=== PATIENT | female | born 1990 | race Two or more races ===

== ENCOUNTER 2017-08-16 16:25 | Inpatient (IN) | payer OTHER ==
[2017-08-16] MEDS ORDERED: OXYTOCIN 30 UNITS/LR 500 ML IV ×2 (18:00)
[2017-08-16] MEDS ORDERED: METHYLERGONOVINE 0.2 MG INJ IM (18:00)
[2017-08-16] MEDS ORDERED: LIDOCAINE 1% (MPF) 30 ML INJ INJ (18:00)
[2017-08-16] MEDS ORDERED: MISOPROSTOL 200 MCG TAB PR (18:00)
[2017-08-16] MEDS ORDERED: CARBOPROST 250 MCG INJ IM (18:00)
[2017-08-16 18:03] LABS: ADD MAN DIFF? NO
[2017-08-16 18:07] LABS: ABNORMAL IP MESSAGE 1; BASOPHIL # 0.1 10^3/ul (0.0-0.1); BASOPHILS % 0.5 % (0.0-2.0); EOSINOPHILS # 0.1 10^3/ul (0.0-0.5); EOSINOPHILS % 0.5 % (0.0-7.0); HEMATOCRIT 42.4 % (37.0-47.0); HEMOGLOBIN 13.9 g/dl (12.0-16.0); LYMPHOCYTES # 1.7 10^3/ul (0.8-2.9); LYMPHOCYTES % 16.6 % (15.0-51.0); MEAN CORPUSCULAR HEMOGLOBIN 26.1 pg (29.0-33.0); MEAN CORPUSCULAR HGB CONC 32.8 g/dl (32.0-37.0); MEAN CORPUSCULAR VOLUME 79.5 fl (82.0-101.0); MEAN PLATELET VOLUME 12.4 fl (7.4-10.4); MONOCYTE # 0.9 10^3/ul (0.3-0.9); NEUTROPHIL # 7.1 10^3/ul (1.6-7.5); NEUTROPHILS % 69.8 % (39.0-77.0); PLATELET COUNT 175 10^3/UL (140-415); RED BLOOD COUNT 5.33 10^6/ul (4.20-5.40); RED CELL DISTRIBUTION WIDTH 17.4 % (11.5-14.5)
[2017-08-16 18:07] LABS: WHITE BLOOD COUNT 10.2 10^3/ul (4.8-10.8)
[2017-08-16 18:12] LABS: POSITIVE DIFF @See below
[2017-08-16 18:29] LABS: INR 0.86; PROTIME 11.8 Sec (11.9-14.9); PT RATIO 0.9
[2017-08-16 18:30] LABS: PARTIAL THROMBOPLASTIN TIME 28.1 Sec (25.0-35.0)
[2017-08-16 18:35] LABS: GLUCOSE 88 mg/dl (70-220)
[2017-08-16] MEDS: OXYTOCIN 30 UNITS/LR 500 ML IV (19:02)
[2017-08-16 19:06] LABS: HEPATITIS B SURFACE ANTIGEN NEGATIVE (NEGATIVE)
[2017-08-17] MEDS ORDERED: IBUPROFEN 600 MG TAB PO ×2 (01:00→18:00)
[2017-08-17] MEDS ORDERED: BUTORPHANOL 2 MG INJ IV (01:00)
[2017-08-17] MEDS: LACTATED RINGER'S 1,000 ML IV ×3 (01:37→17:09)
[2017-08-17] MEDS: DEXTROSE 5%-LR 1,000 ML IV ×2 (04:52→08:00)
[2017-08-17] MEDS ORDERED: FENTAnyl 2MCG/ML-ROPIV 0.2% 100 ML (07:32)
[2017-08-17] MEDS: CITRIC ACID/SODIUM CITRATE 15 ML CUP PO (11:49)
[2017-08-17] MEDS: ONDANSETRON 4 MG INJ IV (11:49)
[2017-08-17] MEDS: CEFAZOLIN 2 GM/50 ML (PMX) 50 ML IVPB (12:10)
[2017-08-17] MEDS ORDERED: LIDOCAINE 2% (SDV) 5 ML INJ ×3 (12:15→12:18)
[2017-08-17] MEDS ORDERED: PHENYLephrine (100 MCG/ML) 5ML SYG (12:15)
[2017-08-17] MEDS ORDERED: DEXAMETHASONE 4 MG/ML 1 ML INJ (12:21)
[2017-08-17] MEDS ORDERED: morphine SULFATE/PF (10 MG/10 ML) INJ (12:38)
[2017-08-17] MEDS: OXYTOCIN 30 UNITS/LR 500 ML IV ×3 (13:29→16:18)
[2017-08-17] MEDS ORDERED: morphine 2 MG INJ IV (13:30)
[2017-08-17] MEDS ORDERED: NALOXONE (0.4 MG/ML) INJ IV (13:30)
[2017-08-17] MEDS ORDERED: ONDANSETRON 4 MG INJ IV (13:30)
[2017-08-17] MEDS ORDERED: ZOLPIDEM 5 MG TAB PO (13:30)
[2017-08-17 14:27] LABS: RAPID PLASMA REAGIN NONREACTIVE (NR)
[2017-08-17] MEDS: KETOROLAC 30 MG INJ IV (16:12)
[2017-08-17] MEDS ORDERED: HYDROCODONE/APAP (5/325) TAB PO (16:30)
[2017-08-17] MEDS ORDERED: MISOPROSTOL 200 MCG TAB PR (16:30)
[2017-08-17] MEDS ORDERED: METHYLERGONOVINE 0.2 MG INJ IM (16:30)
[2017-08-17] MEDS ORDERED: OXYCODONE/ACETAMINOPHEN (5/325) TAB PO (16:30)
[2017-08-17] MEDS ORDERED: CARBOPROST 250 MCG INJ IM (16:30)
[2017-08-17] MEDS: CEFAZOLIN 1 GM/50 ML (PMX) 50 ML IVPB (17:07)
[2017-08-17] MEDS: ACCU-CHEK XX (20:05)
[2017-08-17] MEDS: DIPHENHYDRAMINE 50 MG INJ IV (20:21)
[2017-08-17] MEDS: SENNA/DOCUSATE NA (8.6MG/50MG) TAB PO (21:00)
[2017-08-18] MEDS: OXYTOCIN 30 UNITS/LR 500 ML IV (01:16)
[2017-08-18] MEDS: LACTATED RINGER'S 1,000 ML IV ×3 (01:30→17:30)
[2017-08-18] MEDS: morphine 2 MG INJ IV (06:15)
[2017-08-18] MEDS: ACCU-CHEK XX ×4 (07:30→20:42)
[2017-08-18 11:49] LABS: WHITE BLOOD COUNT 18.5 10^3/ul (4.8-10.8)
[2017-08-18 11:49] LABS: ABNORMAL IP MESSAGE 1; HEMATOCRIT 30.6 % (37.0-47.0); MEAN CORPUSCULAR HEMOGLOBIN 26.2 pg (29.0-33.0); MEAN CORPUSCULAR HGB CONC 32.7 g/dl (32.0-37.0); MEAN CORPUSCULAR VOLUME 80.3 fl (82.0-101.0); MEAN PLATELET VOLUME 12.3 fl (7.4-10.4); PLATELET COUNT 153 10^3/UL (140-415); RED BLOOD COUNT 3.81 10^6/ul (4.20-5.40); RED CELL DISTRIBUTION WIDTH 17.6 % (11.5-14.5)
[2017-08-18 11:51] LABS: POSITIVE DIFF @See below
[2017-08-18 11:52] LABS: ADD MAN DIFF? YES
[2017-08-18] MEDS: SENNA/DOCUSATE NA (8.6MG/50MG) TAB PO ×2 (12:57→20:42)
[2017-08-18] MEDS: IBUPROFEN 600 MG TAB PO ×2 (12:57→18:00)
[2017-08-18] MEDS: OXYCODONE/ACETAMINOPHEN (5/325) TAB PO ×2 (12:57→19:30)
[2017-08-18 13:10] LABS: ANISOCYTOSIS 1+ (0-0); BAND NEUTROPHILS #M 0.3 10^3/ul (0.0-0.6); BAND NEUTROPHILS % (M) 2 % (0-4); GIANT THROMBO% (M) 1 % (0-0); LYMPHOCYTES #M 2.4 10^3/ul (0.8-2.9); LYMPHOCYTES % (M) 13 % (15-51); MICROCYTOSIS 1+ (0-0); MONOCYTE #M 1.2 10^3/ul (0.3-0.9); MONOCYTES % (M) 7 % (0-11); PLASMA CELLS #M 0.1 10^3/ul (0.0-0.0); PLASMAC%(M) 1 % (0); PLATELET ESTIMATE NORMAL; SEG NEUT #M 14.3 10^3/ul (1.6-7.5); SEGMENTED NEUTROPHILS (M) % 77 % (39-77); SMUDGE%M 1 % (0-0)
[2017-08-19] MEDS: IBUPROFEN 600 MG TAB PO ×5 (00:21→23:33)
[2017-08-19] MEDS: ACCU-CHEK XX ×4 (07:30→20:05)
[2017-08-19] MEDS: SENNA/DOCUSATE NA (8.6MG/50MG) TAB PO ×2 (08:06→21:00)
[2017-08-19] MEDS: OXYCODONE/ACETAMINOPHEN (5/325) TAB PO (08:06)
[2017-08-19] MEDS: LANOLIN 7 GM TUBE TOP (08:06)
[2017-08-19] MEDS: HYDROCODONE/APAP (5/325) TAB PO (16:53)
[2017-08-19] MEDS: NA PHOSPHATE/BIPHOS 133 ML ENEMA PR (17:29)
[2017-08-20] MEDS: IBUPROFEN 600 MG TAB PO (05:39)
[2017-08-20] MEDS: ACCU-CHEK XX (07:30)
[2017-08-20] MEDS: SENNA/DOCUSATE NA (8.6MG/50MG) TAB PO (08:20)
[2017-08-20] MEDS ORDERED: DIPHTH/TET/ACEL PERTUSS (ADULT) 0.5 ML VIAL IM* (09:00)
== END 2017-08-20 13:00 | disposition home or self-care (01) | DRG 766 ==
LOC: L-D 16:25 → PP1 08-17 16:20
PROVIDERS: Obstetrics & Gynecology
PROC: 10D00Z1 Extraction of Products of Conception, Low, Open Approach (ICD-10-PCS; principal; 2017-08-17 12:30)
PROC: 3E0P7VZ Introduction of Hormone into Female Reproductive, Via Natural or Artificial Opening (ICD-10-PCS; 2017-08-17 12:30)
PROC: 3E033VJ Introduction of Other Hormone into Peripheral Vein, Percutaneous Approach (ICD-10-PCS; 2017-08-17 12:30)
DX: O13.4 Gestational [pregnancy-induced] hypertension without significant proteinuria, complicating childbirth (principal); O61.0 Failed medical induction of labor; Z3A.38 38 weeks gestation of pregnancy; Z37.0 Single live birth
CPT/HCPCS: 62319; 76816; 76818; 82947; 82962; 85025; 85610; 85730; 86592; 86850; 86900; 86901; 87340; 99464